=== PATIENT | male | born 1970 | race Caucasian/White ===

== ENCOUNTER 2025-09-07 21:49 | Emergency (ER) | payer OTHER, SELFPAY ==
[2025-09-07 21:52] VITALS: BP 135/92
[2025-09-07 21:56] VITALS: BP 135/92
[2025-09-07 22:00] VITALS: BP 122/87
[2025-09-07 22:09] VITALS: BMI 22.6
--- NOTE | 2025-09-07 22:31 | ED.GENMED ---
Addendum entered and electronically signed by Rusty Parkinson DO 09/08/25 01:00:
Update patient resting comfortably, CTs noted, has a's Deven wrap on his hand looks like he has navicular fracture typically would not use a cast or splint in senior care, looks like he stable for discharge back to senior care
Original Note:
History of Present Illness
General
Chief Complaint: Withdrawal Symptoms
Source: patient and records
Exam Limitations: altered mental status
Time Seen by Provider: 09/07/25 22:02
Nursing documentation reviewed up to this point in time: agreed with
History of Present Illness
History of Present Illness:
55-year-old male from local shelter has been there for about 2 or 3 days and alcoholic states he drinks as much using his hands on being treated on alcohol withdrawal protocol with benzodiazepines, and fluids, apparently was unsteady on his feet
incontinent, speaking incoherently referred here has a's Deven wrap on his left wrist states he broke his wrist details of that are unclear, denies any other drugs
Past History
Past History
ED Past Medical History: Other (Alcoholic)
Social History
Tobacco: Non-smoker
Alcohol: Chronic alcoholic
Drug: None
Living: shelter
Employment: Not employed
Review of Systems
Review of Systems
All Other Systems: Not applicable
Phy Exam
Physical Exam
Physical Exam:
Physical Exam
General: Disheveled male resting
Neck: Lips are slightly dry white
Heart: Tachycardic tach
Lungs: no acute respiratory distress. clear bilaterally
Abdomen: Nontender
Neuro: Nontremulous
Skin: no rash
Psychiatric: Flat affect
Extremities: Left wrist in an Deven wrap
Course
Orders/Labs/Results
Orders:
Orders
09/07/25 22:17
Electrocardiogram (*1) Urgent
Reason for Study: Other
Other Reason for Exam: trauma
CT Cervical Spine W/o Iv Contr Urgent
Comment:
Reason For Exam: fall
CT Head W/o Iv Contrast Urgent
Comment:
Reason For Exam: fall
Cardiac Monitoring- Treatment ONCE
EKG- Treatment ONCE
Wrist, Left 3 Views CR [CR Wrist - Left Min 3 Views] Urgent
Comment:
Reason For Exam: fall
09/07/25 22:22
Alcohol Urgent
Complete Blood Count/With Diff Urgent
Comprehensive Metabolic Panel Urgent
Fentanyl, Urine Urgent
Magnesium Urgent
Urine Drug Abuse Screen Urgent
Date Specimen was Collected: 09/07/25
Time Specimen was Collected: 22:18
09/07/25 23:00
0.9% Sodium Chloride 1000 ml [Nss] 1,000 ml Mvi, Adult [Multivitamin] 10 ml Thiamine Injection 100 mg Magnesium Sulfate 2 grams IV 500 mls/hr
09/07/25 23:44
Dextrose 50%-Water [Dextrose 50% Syringe] 25 grams IV NOW STA
Abnormal Lab Results
09/07/25
22:22
RBC 4.60 L 10^6/uL
(4.70-6.10)
Glucose 58 L mg/dl
(70-99)
Calcium 8.1 L mg/dl
(8.4-10.2)
Albumin 3.3 L g/dl
(3.5-5.0)
Ur Tricyclics Screen Positive H
(Negative)
Ur Amphetamines Screen Positive H
(Negative)
U Methamphetamines Scrn Positive H
(Negative)
09/07/25 22:22
09/07/25 22:22
Vital Signs
Initial and Last Documented VS:
Initial Vital Signs
Temp Pulse Resp BP Pulse Ox
97.6 F 68 12 135/92 100
09/07/25 21:52 09/07/25 21:52 09/07/25 21:52 09/07/25 21:52 09/07/25 21:52
Last Documented Vital Signs
Temp Pulse Resp BP Pulse Ox
97.6 F 64 12 122/87 100
09/07/25 21:52 09/07/25 23:30 09/07/25 23:30 09/07/25 22:00 09/07/25 23:30
MDM/Problems Addressed
Differential Diagnosis Includes:
Alcohol withdrawal with treatment now with lethargy, toxic metabolic electrolyte abnormality already drug use occult trauma primary psychiatric
MDM/Problems Addressed:
Confusion ataxia
Chronic conditions affecting care:
Alcoholic
Acute Exacerbation and/or Progression of Chronic Illness:
Alcoholism
*Pulse Oximetry
SaO2: 100
Oxygen Mode of Delivery: Room air
Patient hypoxic: no
*EKG
Interpreted by ED Provider?: Yes
Interpretation: abnormal
Comparison EKG: no comparison EKG present
Heart Rate: 78
Rate: normal
Rhythm: sinus
Ischemia: non-specific ST changes
*Cake Icer And Packer Interpretation
Rate: normal
Interpretation: normal
Heart Rate: 78
Rhythm: sinus
*Critical Care Note
Total Time (30-74mins, 75-104mins- exclusive of procedures): 10
Update Note
Update Note:
12:45 PM update x-ray notable for likely scaphoid fracture CT is notable for pending labs noted modestly hypoglycemia will give some dextrose
ED Attending Note
-
Portions of this chart may have been created with voice recognition software.� Occasional wrong word or��sound alike� substitutions may have occurred due to the inherent limitations of voice recognition software.
Discharge Plan
Departure
Referrals:
[facility] [Family Provider, General]
Interventions
Interventions:
*General Assessment Last Done: 09/07/25 22:05
*Neglect/Abuse Screening Last Done: 09/07/25 22:05
*ED COVID-19 Vaccine History Last Done: 09/07/25 22:05
*ED Influenza Vaccine History Last Done: 09/07/25 22:05
[facility] Fall Risk Assessment Tool Last Done: 09/07/25 22:08
*Risk Screen - Suicide (C-SSRS) Last Done: 09/07/25 22:05
ED- Neurological Assessment Last Done: 09/07/25 22:00
ED-Psychological Assessment Last Done: 09/07/25 22:00
Discharge Date and Time
Print Language: [id number]
[2025-09-07 22:33] LABS: Hematocrit 41.7 % (39.0-52.0); Hemoglobin 13.9 g/dL (13.0-18.0); Mean Corp Hgb Conc. 33.3 g/dL (33.0-37.0); Mean Corpuscular Volume 90.7 fL (80.0-94.0); Nucleated Red Blood Cells % 0 % (-); Platelet Count 139 10^3/uL (130-400); Red Cell Dist. Width 14.2 % (11.5-14.5)
[2025-09-07 22:47] LABS: ALT (SGPT) 20 U/L (0-50); AST (SGOT) 24 U/L (17-59); Albumin 3.3 g/dl (3.5-5.0); Alkaline Phosphatase 50 U/L (38-126); Blood Urea Nitrogen 16 mg/dl (9-20); Calcium 8.1 mg/dl (8.4-10.2); Carbon Dioxide 23 mmol/L (22-30); Chloride 107 mmol/L (98-107); Estimated Creatinine Clearance > 125 ml/min; Glucose 58 mg/dl (70-99); Magnesium 2.1 mg/dl (1.6-2.3); Potassium 4.0 mmol/L (3.5-5.1); Sodium 135 mmol/L (135-145); Total Protein 6.3 g/dl (6.3-8.2); eGFR > 60.00
[2025-09-07] MEDS: MULTIVITAMIN 1015 ML IV (23:20)
[2025-09-07] MEDS: MULTIVITAMIN 1015 MG IV (23:20)
[2025-09-07] MEDS: MULTIVITAMIN 1015 GRAMS IV (23:20)
[2025-09-08] MEDS: DEXTROSE 50% SYRINGE 25 GRAMS IV (00:07)
[2025-09-08 00:55] VITALS: BP 146/78
[2025-09-08 01:00] VITALS: BP 142/97
== END 2025-09-08 01:22 ==
LOC: EMR 21:49
PROVIDERS: EMERGENCY PHYSICIAN Emergency Medicine
DX: F10.239 Alcohol dependence with withdrawal, unspecified (principal); E16.2 Hypoglycemia, unspecified
CPT/HCPCS: 99284; 96365; 96366; 96375; 70450; 72125; 73110; 80053; 80306; 80307; 82077; 83735; 85025; 93005